=== PATIENT | male | born 1955 ===

== ENCOUNTER 2018-02-06 06:59 | Day surgery (SDC) | payer OTHER ==
[2018-02-04 12:59] VITALS: BMI 28.7
[2018-02-06 07:26] LABS: BASO # 0.02 K/mm3 (0.0-2.0); BASO % 0.3 % (0.0-3.0); EOS # 0.3 (0.0-0.7); EOS % 4.9 % (1.5-5.0); GRAN # 2.57 (1.4-6.5); GRAN % 41.7 % (50.0-68.0); LYMPH # 2.7 (1.2-3.4); LYMPH % 44.2 % (22.0-35.0); MEAN CELL VOLUME 87.2 fl (80.0-105.0); MEAN CORPUSCULAR HEMOGLOBIN 29.3 pg (25.0-35.0); MEAN CORPUSCULAR HGB CONC 33.6 g/dl (31.0-37.0); MEAN PLATELET VOLUME 12.7 fl (7.0-11.0); MONO # 0.6 (0.1-0.6); MONO % 8.9 % (1.0-6.0); RBC 4.78 10^6/uL (3.5-6.1); RED CELL DISTRIBUTION WIDTH 13.8 % (11.5-14.5); WHITE BLOOD COUNT 6.2 10^3/ul (4.5-11.0)
[2018-02-06 07:38] LABS: BLOOD UREA NITROGEN 13 mg/dL (7-21); CALCIUM 9.2 mg/dL (8.4-10.5); GFR AFRICAN-AMERICAN > 60; GFR NON-AFRICAN AMERICAN > 60; HDL CHOLESTEROL 31 mg/dL (29-60)
[2018-02-06 07:43] LABS: INR 1.08 (0.93-1.08); PARTIAL THROMBOPLASTIN TIME 28.9 Seconds (25.1-36.5); PROTHROMBIN TIME 12.4 SECONDS (9.4-12.5)
[2018-02-06 07:49] LABS: LDL CHOLESTEROL 62 mg/dL (0-129)
[2018-02-06 07:56] VITALS: RESP 18
[2018-02-06] MEDS ORDERED: Lidocaine 2% Inj (20ml) ONE (08:30)
[2018-02-06] MEDS ORDERED: Verapamil 2 ML ONE (08:30)
[2018-02-06] MEDS ORDERED: Midazolam 2 MG/2 ML VIAL ONE ×2 (08:31→12:10)
[2018-02-06] MEDS ORDERED: Iohexol 350mgl/ml 50 ML ONE (08:32)
[2018-02-06] MEDS ORDERED: Iodixanol 320 MG/ML 100 ML BOTTLE IV ONE (08:32)
[2018-02-06] MEDS ORDERED: Iodixanol 320 MG/ML 200 ML BOTTLE IV ONE (08:32)
[2018-02-06] MEDS ORDERED: Nitroglycerin 50mg in D5W 50 MG/250 ML BOTTLE IV ONE (08:33)
--- NOTE | 2018-02-06 10:37 | CARD ---
APPROVED REPORT EKG Measurement Heart Cpro32DUMS IL 124P10 [id number] <Conclusion> Marked sinus bradycardia LVH NSSTW changes
[2018-02-06] MEDS ORDERED: Adenosine 90 mg/30mL IV ONE (12:39)
[2018-02-06 13:30] VITALS: TEMP 97.9
[2018-02-06 14:37] VITALS: O2SAT 98
[2018-02-06 15:38] VITALS: BP 123/73; PULSE 50
--- NOTE | 2018-02-06 17:42 | CARDCATH ---
PROCEDURE DATE: 02/06/2018 INDICATIONS: Mr. Hutchins, 62-year-old male with past medical history significant for hypertension; dyslipidemia; CAD, status post stenting of LAD and RCA. Referred to [facility] [place] evaluation of abnormal stress test. The patient was evaluated by Dr. Hernandez and subsequently underwent a stress test done at [facility], which showed electrocardiographic changes consistent with ischemia, therefore was referred to [facility] for further evaluation and treatment. PROCEDURE PERFORMED: Left heart catheterization with selective left and right coronary angiogram, left ventriculogram, FFR interrogation of left circumflex and left anterior descending, 6-Macanese right femoral arterial access, Mynx closure device for hemostasis. TECHNIQUES OF PROCEDURE: After obtaining informed consent, the patient was brought to the cardiac cath suite in post-absorptive and non-sedated state. The patient was prepped and draped in the usual sterile fashion. A 2% lidocaine was used for infiltration of anesthesia. Using modified Seldinger technique, a 6-Macanese sheath was introduced into the right femoral artery. Subsequently, over J-wire, JL4 and JR4 diagnostic catheters were used to engage the left and right coronary system. Angiograms were obtained in different orthogonal views. Subsequently, pigtail catheter was advanced into the LV and LV gram was obtained in the ALLEN view. Hemodynamics with saturation were obtained and pullback gradients were noted. CORONARY ANATOMY: The left main, large-sized vessel, bifurcates into LAD and left circumflex coronary artery. Left circumflex is a large-sized vessel, runs in the AV grove has a proximal 55% stenosis and mid 50% stenosis. Gives off obtuse marginal branch. LAD is a large-sized vessel, has a proximal stent, which is patent. Proximal edge of the stent had some haziness consistent with one intermediate lesion about 50% stenosis. Gives off diagonal branch after the stent, which has high-grade stenosis. There is a small branch vessel less than 2 mm in size. RCA proximal stent patent. Right PDA and PLV patent. Left ventricular ejection fraction 60-65%. EDP was 14 mmHg. TECHNIQUES OF INTERVENTION: After reviewing the above angiographic findings, left circumflex and LAD lesions were further interrogated with fractional flow reserve wire. FFR of the left circumflex was 0.9, physiologically nonsignificant. FFR of the LAD was 0.87, also physiologically nonsignificant. IMPRESSION: Moderate left anterior descending and left circumflex disease. High-grade diagonal stenosis, but vessel is less than 2 mm, small vessel for any intervention. RECOMMENDATIONS: Keep the patient on aspirin, Plavix, statins, beta-blockers, nitrates. The patient can be discharged home and follow with Dr. Hernandez and Dr. Veras in a week's time. Jesus Veras MD
== END 2018-02-06 19:30 | disposition home or self-care (01) ==
LOC: CATH 06:59
PROVIDERS: ATTEND Internal Medicine Interventional Cardiology
DX: I25.10 Atherosclerotic heart disease of native coronary artery without angina pectoris (principal); E78.5 Hyperlipidemia, unspecified; I10 Essential (primary) hypertension; Z95.5 Presence of coronary angioplasty implant and graft
CPT/HCPCS: 36415; 80048; 80061; 85025; 85610; 85730; 86850; 86900; 93005; 93458; 93571; 93572; 99152; 99153; C1760; C1769 ×2; C1887; C2629; J0153; J1644 ×2; J2250; J3010; J7040; Q9966; Q9967 ×2